=== PATIENT | male | born 1965 | race Caucasian/White ===

== ENCOUNTER 2025-01-10 08:03 | Day surgery (SDC) | payer OTHER ==
[2025-01-10] VITALS (11 sets, daily range): BP systolic 95–120; BP diastolic 64–89
[~2025-01-10] VITALS: Ht 180.3 cm; Wt 91.7 kg
[~2025-01-10 08:03] MED LIST: CeFAZolin Sodium 2,000 MG in NS 100 ML IV SCH; Dexamethasone Sod Phos 10 MG/ML 1ML VIAL ONE; Ketorolac Tromethamine 30mg Vial ONE; LATA.005SO BOTHEYES; Lactated Ringer's 1,000 ML IV SCH; Lidocaine HCl 2% 20 ML MDV ONE; Metoclopramide HCl 5MG / ML 2ML Vial ONE; Ondansetron HCl 2 MG / ML 2ML Vial ONE; Rocuronium Bromide 10 MG/ML 5ML Injection IV ONE; TIMO.5OPSO BOTHEYES
[2025-01-10] MEDS ORDERED: Acetaminophen 500 MG Tab PO ONE (10:05)
[2025-01-10] MEDS ORDERED: Lidocaine HCl 1% 5 ML SYR INJ ONE (10:05)
[2025-01-10] MEDS ORDERED: Scopolamine Hydrobromide Patch TOP SCH (10:10)
[2025-01-10] MEDS ORDERED: FentaNYL Citrate 50 MCG/ML 2 ML Injection IV PRN ×2 (10:10)
[2025-01-10] MEDS ORDERED: Albuterol 2.5 MG/3 ML VIAL INH PRN (10:10)
[2025-01-10] MEDS ORDERED: HYDROmorphone HCl/Pf 1MG SYR IV PRN ×2 (10:10)
[2025-01-10] MEDS ORDERED: Ondansetron HCl 2 MG / ML 2ML Vial IV PRN (10:15)
[2025-01-10] MEDS ORDERED: Bupivacaine 0.5% HCl 5 MG/ML 30MLVIAL ONE (10:26)
[2025-01-10] MEDS ORDERED: propofoL 150 ML IV ONE (10:44)
[2025-01-10] MEDS ORDERED: HYDROmorphone HCl/Pf 1MG SYR ONE (10:47)
[2025-01-10] MEDS ORDERED: Sugammadex Sodium 200 MG/2ML SDV (100 MG/ML) ONE (10:47)
--- NOTE | 2025-01-10 13:51 | NUR ---
DISCHARGE NOTE PT A&OX4, BREATHING RA, NO APPARENT DISTRESS, NO COMPLAINTS. PT HAS ICE PACK IN PLACE OVER SURGICLA SITE. TOLERATING PO INTAKE. GLASSES IN PLACE. Patient up to Ambulate independently. Gait steady. Discharge instructions reviewed with patient. Patient verbalizes understanding. Copy given to patient to take home. Dressing to procedure site clean, dry, intact with no visible drainage, swelling, erythema or bruising noted. Discharged via wheelchair to private car for ride home.
== END 2025-01-10 14:00 | disposition home or self-care (01) ==
LOC: ORSCMMR 08:03 → ORD 09:45 → ORSCMMR 14:00
PROVIDERS: Surgery
PROC: 0YU64JZ Supplement Left Inguinal Region with Synthetic Substitute, Percutaneous Endoscopic Approach (ICD-10-PCS; principal; 2025-01-10 09:45)
PROC: 8E0W4CZ Robotic Assisted Procedure of Trunk Region, Percutaneous Endoscopic Approach (ICD-10-PCS; principal; 2025-01-10 09:45)
DX: K40.90 Unilateral inguinal hernia, without obstruction or gangrene, not specified as recurrent (principal)
CPT/HCPCS: A9270; C1781; J0690; J1100; J1171; J1885; J2405; J2704; J2765; J7120